=== PATIENT | male | born 1990 | race African-American/Black ===

== ENCOUNTER 2024-10-21 18:43 | Emergency (ER) | payer MEDICAID ==
[~2024-10-21] VITALS: Ht 177.8 cm; Wt 82.0 kg
[2024-10-21 18:44] VITALS: O2SAT 97
[2024-10-21 19:33] LABS: EOSINOPHILS % 1.4 % (0.0-5.0); HEMATOCRIT. 43.3 % (42.0-52.0); HEMOGLOBIN. 14.5 g/dL (14.0-18.0); MEAN CORPUSCULAR HEMOGLOBIN 29.8 pg (28.0-32.0); MEAN CORPUSCULAR HGB CONC 33.4 g/dL (31.0-37.0); MEAN CORPUSCULAR VOLUME 89.2 fL (80.0-94.0); MEAN PLATELET VOLUME 9.3 fl (7.4-10.4); MONOCYTES % 9.1 % (2.0-8.0); NEUTROPHILS % 55.5 % (40.0-76.0); PLATELET 242 x1000/uL (130-400); RED BLOOD CELL COUNT 4.86 mill/uL (4.7-6.1); RED CELL DISTRIBUTION WIDTH 12.2 % (11.6-14.6); WHITE BLOOD COUNT 5.1 x1000/uL (4.5-11.0)
[2024-10-21 19:35] LABS: CHLORIDE 100 mEq/L (98-107); POTASSIUM 3.9 mEq/L (3.5-5.1); SODIUM 141 mEq/L (136-145)
[2024-10-21 19:36] LABS: CARBON DIOXIDE 26 mEq/L (21-32)
[2024-10-21 19:37] LABS: CALCIUM 10.1 mg/dL (8.7-10.4)
[2024-10-21 19:41] LABS: CREATININE 1.4 mg/dL (0.6-1.3)
[2024-10-21 19:42] LABS: GLUCOSE 122 mg/dL (70-105); UREA NITROGEN BLOOD 11 mg/dL (9-23)
[2024-10-21 19:44] LABS: CREATINE KINASE 106 IU/L (46-171)
[2024-10-21 19:55] LABS: ETHANOL BLOOD < 10 mg/dL (<10)
[2024-10-21 20:00] VITALS: BP 123/67; PULSE 72; RESP 22; TEMP 36.3; O2SAT 97
[2024-10-21 20:16] LABS: AMMONIA 55 uMol/L (<32)
== END 2024-10-21 21:41 | disposition home or self-care (01) ==
LOC: ER 18:43
DX: R41.82 Altered mental status, unspecified (principal); F84.0 Autistic disorder; R00.0 Tachycardia, unspecified; Z91.018 Allergy to other foods
CPT/HCPCS: 36415; 80048; 80320; 82140; 82550; 85025; 93005; 99284; G0480